=== PATIENT | male | born 1990 | race Caucasian/White ===

== ENCOUNTER 2019-01-02 11:50 | Emergency (ER) | payer SELFPAY ==
[~2019-01-02] VITALS: Ht 177.8 cm; Wt 77.1 kg
--- NOTE | 2019-01-02 12:16 | NUR ---
CALLED [facility]. SPOKE TO INSURANCE PROCESSOR [id number]. SHE WILL DISPATCH OFFICERS
[2019-01-02] MEDS ORDERED: HYDROCODONE/APAP 5/325MG 1 EACH TABLET ONE (12:17)
[2019-01-02] MEDS ORDERED: LIDOCAINE 1%-EPI 1:100,000 20 ML VIAL ONE (12:20)
[2019-01-02] MEDS ORDERED: HYDROCODONE/APAP 5/325MG 1 EACH TABLET PO ONE (12:30)
--- NOTE | 2019-01-02 13:00 | NUR ---
PATIENT AWAKE ALERT NON DISTRESS PRE[ FOR LAC INCISION AGREES FOR TREATMENT
[2019-01-02 13:52] VITALS: BP 134/67
--- NOTE | 2019-01-02 13:54 | NUR ---
PATIENT HAVE UP TO DATE IMMUNIZATION STATED
--- NOTE | 2019-01-02 13:55 | NUR ---
Patient discharged to home in stable condition. Written and verbal after care instructions given . Patient verbalizes understanding of instruction.
--- NOTE | 2019-01-02 13:56 | NUR ---
PRESCRIPTION GIVEN TO PATIENT AGREES TO FOLLOW UP TO WOUND CHECK IN 2 DAYS [facility]
== END 2019-01-02 13:59 | disposition home or self-care (01) ==
LOC: ER 11:50
DX: S51.811A Laceration without foreign body of right forearm, initial encounter (principal); Z59.0 Homelessness; W26.0XXA Contact with knife, initial encounter; Y93.89 Activity, other specified; Y92.89 Other specified places as the place of occurrence of the external cause; Y99.8 Other external cause status
CPT/HCPCS: 12001; 73090; 99283; A6403 ×2; J3490